=== PATIENT | female | born 1940 ===

== ENCOUNTER 2021-09-17 05:51 | Inpatient (IN) ==
[~2021-09-17 05:51] MED LIST: Buffered Lidocaine 1% SYRIN 1 ml INTRADERM ONE; DiMENhydriNATE IV 50 mg/ml 1 ml VIAL IV PUSH ONE; HYDROcodone/ACETAMIN 5/325 mg TAB PO PRN; Lactated Ringers 1000 ml BAG 1,000 ML IV SCH; Metoclopramide 5 MG/ML VIAL (10 mg) IV PRN; Naloxone 0.4 mg VIAL 0.4 mg/ml 1 ml VIAL IV PRN; Ondansetron 4 mg VIAL 2 MG/ML 2 ml VIAL IV PRN
[2021-09-17] MEDS ORDERED: DiMENhydriNATE IV 50 mg/ml 1 ml VIAL ONE (06:26)
[2021-09-17] MEDS ORDERED: ceFAZolin 2 GM in NS PREMIX 2 GM/100 ML BAG IVPB ONE (06:27)
[2021-09-17] MEDS ORDERED: Ropivacaine 5 MG/ML 20 ML VIAL 0.5% (100 MG) ONE (06:51)
[2021-09-17] MEDS ORDERED: Midazolam 2 mg/2 ml VIAL 1 mg/ml 2 ml VIAL (2 mg) ONE ×2 (06:54→07:17)
[2021-09-17] MEDS ORDERED: Propofol 10 MG/ML 20 ML BTL ONE (06:54)
[2021-09-17] MEDS ORDERED: fentaNYL 100 mcg/2 ml 50 MCG/ML VIAL ONE ×3 (07:17→10:46)
[2021-09-17] MEDS ORDERED: Bupivacaine 0.5% SDV PF 30ML VIAL ONE (07:17)
[2021-09-17] MEDS ORDERED: Dexamethasone IV 4 MG/ML VIAL 1 ml VIAL ONE (07:17)
[2021-09-17] MEDS ORDERED: Phenylephrine 40 mcg/mL 10mL (400mcg) SYRINGE ONE (08:14)
[2021-09-17] MEDS ORDERED: diPHENhydraMINE IV 50 MG/ML 1 ml VIAL (BENADRYL) IV PRN (08:35)
[2021-09-17] MEDS ORDERED: diPHENhydraMINE 25 mg TAB PO PRN (08:35)
[2021-09-17] MEDS ORDERED: Magnesium Hydroxide LIQ 30 ML UDC PO PRN (08:35)
[2021-09-17] MEDS ORDERED: Ondansetron ODT 4 mg TAB 4 MG TAB PO PRN (08:35)
[2021-09-17] MEDS ORDERED: Morphine 2 MG/ML SYRINGE IV PRN (08:35)
[2021-09-17] MEDS ORDERED: Ondansetron 4 mg VIAL 2 MG/ML 2 ml VIAL IV PRN (08:35)
[2021-09-17] MEDS ORDERED: Lactulose 30 ml UDC PO PRN (08:35)
[2021-09-17] MEDS ORDERED: HYDROcodone/ACETAMIN 5/325 mg TAB ONE (10:21)
[2021-09-17] MEDS: fentaNYL 100 mcg/2 ml 50 MCG/ML VIAL IV PRN ×8 (10:23→11:03)
[2021-09-17] MEDS ORDERED: Ondansetron 4 mg VIAL 2 MG/ML 2 ml VIAL ONE (11:20)
[2021-09-17] MEDS: Lactated Ringers 1000 ml BAG 1,000 ML IV SCH ×2 (12:35→22:19)
[2021-09-17] MEDS: Vitamin THERAPEUTIC TAB PO SCH (13:28)
[2021-09-17] MEDS: Magnesium Hydroxide LIQ 30 ML UDC PO SCH ×2 (13:28→20:59)
[2021-09-17] MEDS: ceFAZolin 1 GM ADVAN 1 GM in NS 0.9% 50 ML 50 ML IVPB SCH ×2 (15:50→23:41)
[2021-09-18 06:22] LABS: Hematocrit 27 % (35-47); Hemoglobin 9.5 g/dL (12.0-16.0); Mean Platelet Volume 7.7 fL (7.4-10.4); Platelet Count 185 10^3/uL (150-450)
[2021-09-18 06:44] LABS: Calcium 8.8 mg/dL (8.6-10.3); Potassium 3.4 mmol/L (3.5-5.0)
[2021-09-18] MEDS: Vitamin THERAPEUTIC TAB PO SCH (07:57)
[2021-09-18] MEDS: ceFAZolin 1 GM ADVAN 1 GM in NS 0.9% 50 ML 50 ML IVPB SCH (08:00)
[2021-09-18] MEDS: Magnesium Hydroxide LIQ 30 ML UDC PO SCH (08:00)
[2021-09-18 11:34] VITALS: BP 91/57
== END 2021-09-18 13:50 | disposition home or self-care (01) | DRG 470 ==
LOC: AA 05:51 → SSU 12:09
PROVIDERS: ADMIT Orthopaedic Surgery Adult Reconstructive Orthopaedic Surgery; ATTEND Orthopaedic Surgery Adult Reconstructive Orthopaedic Surgery